=== PATIENT | male | born 1975 ===

== ENCOUNTER 2022-02-04 16:20 | Emergency (ER) | payer OTHER ==
[~2022-02-04] VITALS: Ht 185 cm; Wt 97.0 kg
--- NOTE | 2022-02-04 17:00 | ED Integumentary General ---
General Chief Complaint: Skin/Wound Problems Stated Complaint: WC RT HAND INJ Nursing Triage Note: RT HAND APARICIO AFTER GETTING 300 PSI OF POWER WASHING PRESSURE ON HIS HAND. NO BROKEM SKIN. REPORTS IT APARICIO ON THE PALM OF HIS HAND. SMALL PINK AREA. Source: patient History of Present Illness Date Seen by Provider: Feb 04, 2022 Time Seen by Provider: 16:45 Initial Comments 46-year-old male presenting with complaints of stinging and burning to right hand over the hypothenar eminence. He was at work and had been working with compression hose hooked to oil. When he tried to disconnected there was still some residual pressure in the hose and he had oil spray against his right hand. He immediately washed his hands and had look for any signs of bleeding. He even poured a little brake fluid on his hand to see if there was any small cut that he could not see. Neither blood or evidence of a cut were seen. However because of the high pressure oil spray work had recommended he be evaluated for subcutaneous oil or air. 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 He is right hand dominant Timing/Duration: just prior to arrival Severity: mild Location: hands (right) Possible Cause: other (high pressure oil from compression hose) Associated Symptoms: No blisters, No change in skin texture, No edema, No fever, No flushing, No headache, No hives, No jaundice, No malaise, No nasal congestion, No numbness, No pallor, No paresthesia, No petechiae, No rash, No sore throat, No swelling/mass/lumps; tingling (tingling with stinging to right hand medial palm) Allergies and Home Medications Allergies Coded Allergies: No Known Drug Allergies (Unverified , 02/04/22) Patient Home Medication List Home Medication List Reviewed: Yes Review of Systems Review of Systems Constitutional: no symptoms reported EENTM: no symptoms reported Respiratory: no symptoms reported Cardiovascular: no symptoms reported Gastrointestinal: no symptoms reported Genitourinary: no symptoms reported Musculoskeletal: see HPI Skin: see HPI Psychiatric/Neurological: See HPI Past Fkyckej-Xwfcjn-Frxpnp Hx Patient Social History Tobacco Use?: Yes Tobacco type used: Cigarettes Smoking Status: Former Smoker Use of E-Cig and/or Vaping dev: No Substance use?: No Alcohol Use?: No Pt feels they are or have been: No Immunizations Up To Date First/Initial COVID19 Vaccinat: NONE Past Medical History Surgery/Hospitalization HX: ASTHMA Physical Exam Vital Signs Vital Signs - First Documented 02/04/22 16:33 Temp 36.7 Pulse 100 Resp 18 B/P (MAP) 128/80 (96) Pulse Ox 96 O2 Delivery Room Air Capillary Refill : Less Than 3 Seconds General Appearance: WD/WN, no apparent distress Cardiovascular: normal peripheral pulses Extremities: normal range of motion, non-tender, normal inspection, normal capillary refill, other (no swelling or crepitus to right palm) 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 Will obtain xrays to look for foreign body/subcutaneous air. Progress Note #2: Progress Note On my review of the three-view x-rays of his right hand there is no evidence of subcutaneous fluid or air. Treat symptomatically and encouraged to return or follow-up immediately if having worsening pain and problems. Diagnostic Imaging Diagonstic Imaging: Xray Plain Films/CT/US/NM/MRI: hand Comments [facility], [facility]. [place], [place] NAME: DEMI MEANS [facility] REC#: [id number] PT STATUS: REG ER : 1975 PHYSICIAN: CRISTINE BELL MD ADMIT DATE: 02/04/22/ER FS Draft Date of Exam:02/04/22 HAND 3 VIEW RIGHT HISTORY: Pain in the hypothenar eminence after injury. TECHNIQUE: Three views of the right hand. COMPARISON: None. FINDINGS: No acute fracture or dislocation is seen in the right hand. There appears to be chronic deformity of the fifth metacarpal from remote trauma. Alignment appears normal. Joint spaces are preserved. No soft tissue gas is seen. There is a small linear hyperdensity at the radial volar side of the distal third finger measuring about 3 mm in length. IMPRESSION: 1. No acute osseous abnormalities seen in the right hand. 2. Linear density at the soft tissues of the distal right third finger, may represent a foreign body or may be external to the patient. Dictated on workstation # [id number] Dict: 02/04/22 1723 Trans: 02/04/22 1730 [id number] Interpreted by: ANDREY GUZMAN MD Electronically signed by: Reviewed: Reviewed by Me Departure Impression Primary Impression: Contusion of right hand, initial encounter Additional Impression: High pressure injury of right hand Disposition: 01 HOME, SELF-CARE Condition: Stable Departure-Patient Inst. Decision time for Depature: 17:20 Referrals: NO,LOCAL PHYSICIAN (PCP/Family) Primary Care Physician Patient Instructions: Contusion (DC), Hand Pain (DC) Add. Discharge Instructions: No sign of oil or air injection into the hand/forearm. Follow up with clinic for continued concerns or if not improving. All discharge instructions reviewed with patient and/or family. Voiced understanding. CRISTINE BELL MD Feb 04, 2022 17:00
--- NOTE | 2022-02-04 17:30 | Diagnostic Imaging Report ---
HISTORY: Pain in the hypothenar eminence after injury. TECHNIQUE: Three views of the right hand. COMPARISON: None. FINDINGS: No acute fracture or dislocation is seen in the right hand. There appears to be chronic deformity of the fifth metacarpal from remote trauma. Alignment appears normal. Joint spaces are preserved. No soft tissue gas is seen. There is a small linear hyperdensity at the radial volar side of the distal third finger measuring about 3 mm in length. IMPRESSION: 1. No acute osseous abnormalities seen in the right hand. 2. Linear density at the soft tissues of the distal right third finger, may represent a foreign body or may be external to the patient. Dictated by: Dictated on workstation # [id number]
[2022-02-04 17:31] VITALS: BP 128/80
== END 2022-02-04 17:32 | disposition home or self-care (01) ==
LOC: ER FS 16:23
DX: S60.221A Contusion of right hand, initial encounter (principal); F17.210 Nicotine dependence, cigarettes, uncomplicated; Z28.310 Unvaccinated for COVID-19; W94.0XXA Exposure to prolonged high air pressure, initial encounter; Y92.59 Other trade areas as the place of occurrence of the external cause; Y99.0 Civilian activity done for income or pay
CPT/HCPCS: 73130